=== PATIENT | male | born 1980 | race Caucasian/White ===

== ENCOUNTER → 2016-12-09 | Outpatient (CLI) | payer BC ==
[2016-12-09 17:17] LABS: THYROID STIMULATING HORMONE 5.49 uIu/ml (0.300-4.500)
== END | disposition home or self-care (01) ==
LOC: C.LABBC 15:16
PROVIDERS: ATTEND Family Medicine
DX: Z13.29 Encounter for screening for other suspected endocrine disorder (principal)

== ENCOUNTER → 2016-12-13 | Outpatient (CLI) | payer BC ==
--- NOTE | 2016-12-13 09:46 | DIAGNOSTIC IMAGING REPORT ---
THYROID ULTRASOUND CLINICAL HISTORY: Neck fullness. COMPARISON STUDY: None TECHNIQUE: Sonography of the thyroid gland was performed. FINDINGS: The right thyroid lobe measures 5.2 x 1.9 x 1.5 cm and the left lobe measures 5 x 1.4 x 1.3 cm. Several subcentimeter right lobe nodules are noted. The largest is within the mid to lower pole, 0.6 x 0.5 x 0.4 cm. The gland is homogeneous. IMPRESSION: 1. Top normal size thyroid gland. 2. A few subcentimeter right lobe nodules. While indeterminate, these are likely benign and do not meet criteria for biopsy. Electronically signed by: Ralph Dumont M.D. 12/13/2016 9:45 AM Dictated Date/Time: 12/13/2016 9:43 AM
== END | disposition home or self-care (01) ==
LOC: C.ULTR 08:47
PROVIDERS: ATTEND Family Medicine
DX: R22.1 Localized swelling, mass and lump, neck (principal)

== ENCOUNTER → 2017-01-14 | Outpatient (CLI) | payer BC ==
[2017-01-16 14:34] LABS: MICROSOMAL AB <1 IU/ML (<9)
== END | disposition home or self-care (01) ==
LOC: C.LABBC 12:26
PROVIDERS: ATTEND Family Medicine
DX: E03.9 Hypothyroidism, unspecified (principal)

== ENCOUNTER → 2017-12-10 | Outpatient (CLI) | payer BC | END | disposition home or self-care (01) | LOC: C.LABBC 13:51 | PROVIDERS: ATTEND Physician Assistant Medical | DX: Z00.00 Encounter for general adult medical examination without abnormal findings (principal); J30.9 Allergic rhinitis, unspecified; E03.9 Hypothyroidism, unspecified ==

== ENCOUNTER → 2018-06-04 | Outpatient (CLI) | payer BC | END | disposition home or self-care (01) | LOC: C.LABBC 08:24 | PROVIDERS: ATTEND Physician Assistant Medical | DX: Z00.00 Encounter for general adult medical examination without abnormal findings (principal); J30.9 Allergic rhinitis, unspecified; E03.9 Hypothyroidism, unspecified ==

== ENCOUNTER 2022-01-06 14:11 | Observation (INO) ==
[2022-01-06] MEDS ORDERED: ceFAZolin 2000MG 2,000 MG/15 ML SYR IV ONE (14:59)
--- NOTE | 2022-01-06 15:00 | XRay Report ---
XR ankle RT min 3V routine, XR tibia fibula RT 2V HISTORY: 41 years-old Male fall, ankle pain acute pain of the right lower extremity status post fall COMPARISON: None TECHNIQUE: 2 views of the right tibia and fibula with 2 views of the right ankle FINDINGS: ANKLE: There is an acute intra-articular medial malleolar fracture which demonstrates 8 mm volar displacemen t with mild comminution. A 1.3 cm bone fragment is noted along the anterior margin of the distal tibi a on the lateral view. Acute minimally displaced posterior malleolar fracture. Mild to moderate circu mferential soft tissue swelling of the ankle. No dislocation. Mild spurring of the calcaneus. TIBIA/FIBULA: There is an acute spiral fracture of the mid fibular diaphysis demonstrating 4 mm lateral with 6 mm v olar displacement. No additional acute fracture or dislocation. IMPRESSION: 1. Acute, mildly comminuted and displaced medial malleolar fracture. 2. Acute minimally displaced posterior malleolar fracture. 3. Acute mildly displaced spiral fracture of the mid fibular diaphysis. ACT 112: Negative or not required by law. The above report was generated using voice recognition software. It may contain grammatical, syntax o r spelling errors. Electronically signed by: Ronnie Stevens M.D. 01/06/2022 2:59 PM
--- NOTE | 2022-01-06 16:15 | Emergency Department Note ---
History of Present Illness General Chief complaint: Leg Injury/Pain Stated complaint: LOWER LEG PAIN, BREAK Time Seen by Provider: 01/06/22 14:25 History of Present Illness Maximum Pain Intensity: 3 This 41-year-old male presents today with his , for evaluation of his right ankle. Patient states he was walking in the [employer] with his dog, and slipped on some ice. He fell and had immediate onset of pain in his ankle. He noticed that his foot was turned 90 degrees externally. He did grab onto the foot and twist it back into place. He has not been able to bear weight on the leg. He denies any knee or hip pain. He did not strike his head. No loss of consciousness. He does have a history of previous right ankle fracture that did not require surgery, many years ago. No other complaints at this point. He denies any numbness or tingling. Home Medications Medication Instructions Recorded Confirmed Type levothyroxine 75 mcg tablet 75 mcg PO DAILY #90 tab 01/02/22 01/06/22 Rx Allergies Allergy/AdvReac Type Severity Reaction Status Date / Time No Known Allergies Allergy Verified 01/06/22 15:59 Past Med/Surg History Medical History Allergic rhinitis Hypothyroidism Laryngopharyngeal reflux Surgical History No pertinent past surgical history Family History Grandfather (Maternal) Prostate cancer Grandmother (Paternal) Breast cancer Grandfather (Paternal) Diabetes Father Diabetes Grandmother (Maternal) Myocardial infarction Mother Melanoma in her 30s Denies family history of Ovarian cancer Lung cancer Colorectal cancer Social History Smoking Status: Never smoker Second Hand Exposure: No; Hx Alcohol Use: Yes Alcohol type: beer Hx Substance Use: No Preferred Language: Kinyarwanda Communication Ability: Effective Visual Impairment: No Limitations Hearing Ability: Normal Professor Of Physics Required: No marital status: Current Living Situation: Spouse Current Living Situation Comment: 4 children current occupational status: employed current occupation: Residential Director [employer] Feels Safe at Home: Yes Childhood Exposure to Second-Hand Smoke: Yes caffeine: Yes Dental Care, Regularly: Yes Physical Activity Frequency: Daily Seatbelt Use: always Sunscreen Use: Yes Review of Systems A total of 10 systems reviewed and were otherwise negative Physical Exam Vital Signs Vital Signs - 24 hr 01/06/22 14:27 Temperature 36.7 C Temperature Source Temporal Artery Scan Pulse Rate 61 Respiratory Rate 18 Respiratory Effort / Characteristics Non-Labored Respiratory Depth Normal Respiratory Pattern Regular Blood Pressure 118/73 Blood Pressure Mean 88 Blood Pressure Position Sitting Pulse Oximetry 98 Oxygen Delivery Method Room Air Sepsis Recent Fever Within 48 Hours No Sepsis New/Unexplained Change in Mental Status No Sepsis Action Taken by Nursing No Action Required General: Well-developed, well-nourished, young white male, in no acute distress. Sitting in a bed. Alert and oriented. Skin: Warm and dry with good turgor. No rashes or lesions. No erythema. The patient is not diaphoretic. There are 2 small abrasions present over the ant erior medial malleolus, with 2 vertical incisions that are approximately 3 mm each. Bleeding is controlled. No bone fragments are noted. There is ecchymosis between the 2 lacerations. Musculoskeletal: Patient has no discomfort with palpation over the right knee. No pain with palpation over the fibular head. Palpation of the midshaft tibia and fibula also reveals no discomfort. There is crepitus palpable over the midshaft fibula, though this is nontender. He does have significant discomfort with palpation over the medial malleolus and lateral malleolus. No abnormalities noted with palpation of the Achilles. Normal Tavarez test. No pain with palpation over the midfoot, forefoot, or toes. Motor function of the toes is intact and unremarkable. Motor function the ankle was not attempted due to suspected fracture. Neurologic: Gross sensation is intact across all aspects of the right lower leg and foot by soft touch. Peripheral pulses are 2+. Capillary refill is equal for each of the toes. Course Administered Medications Sodium Chloride (Nss 1000ml) 1,000 mls @ 80 mls/hr IV .[id number] [facility] Stop: 02/05/22 16:59 Last Admin: 01/06/22 17:20 Dose: 80 mls/hr Documented by: [id number] Discontinued Medications Cefazolin Sodium (Ancef 2000mg) 2,000 mg in 15 mls @ 3.75 mls/min IV PREOP ONE Stop: 01/06/22 15:02 Last Admin: 01/06/22 15:15 Dose: 3.75 mls/min Documented by: [id number] Medical Decision Making Differential Diagnosis Closed ankle fracture, open ankle fracture, sprain, Maisonneuve injury, contusion, ligament disruption Home Medications Current Medication List: was personally reviewed by me Laboratory Data Lab Results 01/06/22 Range/Units 15:15 SARS-CoV-2, RNA, NAAT NEGATIVE (NEGATIVE) Imaging Data My Impression: Radiographic imaging obtained today of the tibia and fibula, as well as the ankle, were reviewed by me and read by radiology. Patient has a displaced medial malleolus fracture, midshaft fibular fracture, and a posterior malleolus fracture. Medial malleolus fracture fragment correlates with the location of his puncture wounds. Radiologist's Impression: Ankle X-Ray 01/06/22 14:29 XR ankle RT min 3V routine, XR tibia fibula RT 2V HISTORY: 41 years-old Male fall, ankle pain acute pain of the right lower extremity status post fall COMPARISON: None TECHNIQUE: 2 views of the right tibia and fibula with 2 views of the right ankle FINDINGS: ANKLE: There is an acute intra-articular medial malleolar fracture which demonstrates 8 mm volar displacement with mild comminution. A 1.3 cm bone fragment is noted along the anterior margin of the distal tibia on the lateral view. Acute minimally displaced posterior malleolar fracture. Mild to moderate circumferential soft tissue swelling of the ankle. No dislocation. Mild spurring of the calcaneus. TIBIA/FIBULA: There is an acute spiral fracture of the mid fibular diaphysis demonstrating 4 mm lateral with 6 mm volar displacement. No additional acute fracture or dislocation. IMPRESSION: 1. Acute, mildly comminuted and displaced medial malleolar fracture. 2. Acute minimally displaced posterior malleolar fracture. 3. Acute mildly displaced spiral fracture of the mid fibular diaphysis. ACT 112: Negative or not required by law. The above report was generated using voice recognition software. It may contain grammatical, syntax or spelling errors. Electronically signed by: Ronnie Stevens M.D. 01/06/2022 2:59 PM Tibia/Fibula X-Ray 01/06/22 14:29 XR ankle RT min 3V routine, XR tibia fibula RT 2V HISTORY: 41 years-old Male fall, ankle pain acute pain of the right lower extremity status post fall COMPARISON: None TECHNIQUE: 2 views of the right tibia and fibula with 2 views of the right ankle FINDINGS: ANKLE: There is an acute intra-articular medial malleolar fracture which demonstrates 8 mm volar displacement with mild comminution. A 1.3 cm bone fragment is noted along the anterior margin of the distal tibia on the lateral view. Acute minimally displaced posterior malleolar fracture. Mild to moderate circumferential soft tissue swelling of the ankle. No dislocation. Mild spurring of the calcaneus. TIBIA/FIBULA: There is an acute spiral fracture of the mid fibular diaphysis demonstrating 4 mm lateral with 6 mm volar displacement. No additional acute fracture or dislocation. IMPRESSION: 1. Acute, mildly comminuted and displaced medial malleolar fracture. 2. Acute minimally displaced posterior malleolar fracture. 3. Acute mildly displaced spiral fracture of the mid fibular diaphysis. ACT 112: Negative or not required by law. The above report was generated using voice recognition software. It may contain grammatical, syntax or spelling errors. Electronically signed by: Ronnie Stevens M.D. 01/06/2022 2:59 PM Blood Pressure Blood Pressure Findings: Normal blood pressure MDM Narrative Patient was evaluated in room D5. Conservative care measures were discussed. IV was established. Radiographic imaging of the ankle and tibia/fibula was obtained. Patient did not require any IV pain medication. His films are positive for medial malleolus fracture, posterior malleolus fracture, and a midshaft fibular fracture. Mechanism of injury suggests interosseous disruption. Location of his skin wounds correlate with the tibia fracture. Risk for open fracture was discussed with him. Because of this, consultation was obtained from Dr. Zuniga from [facility] orthopedics. He will take the patient to the OR this evening for ORIF. Please see his dictation for final management. Patient did eat pancakes this morning around 9:30 AM and had a granola bar approximately an hour and a half ago. This was relayed to the surgeon. Patient was placed in a Ortho-Glass stirrup splint by me with an auto tech, to assist with support/stability. Neurovascular status was checked before and after splint placement. Patient remained stable while in the ED. Impression & Plan Bimalleolar fracture of right ankle NPO. He will be taken to the OR this evening for ORIF. Ancef 2 g IV was administered in the ED. Nadia: I saw and examined patient. Agree with above note. To OR this evening for ORIF. Admit to hospital overnight post-op. Discharge Plan Visit Data Patient Disposition: Admitted As Inpatient Forms Stand Alone Forms: [facility] Prescriptions Prescriptions: No Action levothyroxine 75 mcg tablet 75 mcg PO DAILY Qty: 90 RF: 0 Referrals Referrals: Sunni Matute MD [Primary Care Provider] - Discharge Problem: Bimalleolar fracture of right ankle Qualifiers: Encounter type: initial encounter Fracture type: open Open fracture type: open type I or II Qualified Code(s): S82.841B - Displaced bimalleolar fracture of right lower leg, initial encounter for open fracture type I or II
[2022-01-06] MEDS ORDERED: SODIUM CHLORIDE 0.9% 1000ML 1,000 ML IV SCH (17:00)
[2022-01-06] MEDS ORDERED: ePHEDrine sulfate 50 MG/ML AMP IV PRN (19:29)
[2022-01-06] MEDS ORDERED: LABETALOL HCL IV 5 MG/ML 20ML IV PRN (19:29)
[2022-01-06] MEDS ORDERED: PHENYLEPHRINE 100MCG/ML 5ML SYR IV PRN (19:29)
[2022-01-06] MEDS ORDERED: MEPERIDINE HCL 25 MG/ML CARP/VIAL IV PRN (19:29)
[2022-01-06] MEDS ORDERED: HYDROmorphone INJ 1 MG/ML SYRINGE IV PRN (19:29)
[2022-01-06] MEDS ORDERED: ATROPINE SULFATE 0.1 MG/ML 10ML SYR IV PRN (19:29)
[2022-01-06] MEDS ORDERED: ONDANSETRON INJ 2 MG/ML 2 ML VIAL IV PRN (19:29)
--- NOTE | 2022-01-06 19:30 | Anesthesiology Consultation ---
Date of Service January 06, 2022 Assessment & Plan (1) Encounter for pre-operative examination: Chart Review Chart Review: Acceptable Risk for Surgery and Patient NOT seen in Pre Admission Testing Consults Requested none History Surgery Operation Date: 01/06/22 17:15 Proposed Procedures p ORIF right Tibial Plateau Fracture(Right) - Abdulaziz Zuniga MD Height/Weight Height: 6 ft 2 in Weight: 99.3 kg Allergies Allergy/AdvReac Type Severity Reaction Status Date / Time No Known Allergies Allergy Verified 01/06/22 15:59 Medications Home Medications Medication Instructions Recorded Confirmed Last Taken levothyroxine 75 mcg tablet 75 mcg PO DAILY #90 tab 01/02/22 01/06/22 01/06/22 Active Medications Generic Name Dose Route Start Last Admin Trade Name Freq PRN Reason Stop Dose Admin Sodium Chloride 1,000 mls @ 80 mls/hr 01/06/22 17:00 01/06/22 17:20 Nss 1000ml IV 02/05/22 16:59 80 mls/hr .[id number] ROBY Administration NPO Date Last Intake of Fluids: 01/06/22 Time Last Intake of Fluids: 13:00 Last Intake of Fluids Comment: water Date Last Intake of Solids: 01/06/22 Time Last Intake of Solids: 12:00 Last Intake of Solids Comment: lesly nolan Past Medical History Medical History Allergic rhinitis Hypothyroidism Laryngopharyngeal reflux Past Family History Family History Grandfather (Maternal) Prostate cancer Grandmother (Paternal) Breast cancer Grandfather (Paternal) Diabetes Father Diabetes Grandmother (Maternal) Myocardial infarction Mother Melanoma in her 30s Denies family history of Ovarian cancer Lung cancer Colorectal cancer Past Surgical History Surgical History No pertinent past surgical history Social History Smoking Status: Never smoker Hx Alcohol Use: Yes Alcohol type: beer Hx Substance Use: No Physical Exam Vital Signs Last Vital Signs Temp 36.7 C 01/06/22 14:27 Pulse 61 01/06/22 14:27 Resp 18 01/06/22 14:27 BP 118/73 01/06/22 14:27 Pulse Ox 98 01/06/22 14:27
[2022-01-06] MEDS ORDERED: MIDAZOLAM HCL 1 MG/ML 2ML VIAL ONE (19:45)
[2022-01-06] MEDS ORDERED: fentaNYL citrate 100 MCG/2 ML VIAL ONE ×2 (19:46→22:06)
[2022-01-06] MEDS ORDERED: PROPOFOL IV EMULSION 10 MG/ML 20 ML VIAL IV ONE (19:52)
[2022-01-06] MEDS ORDERED: SUCCINYLCHOLINE CHLORIDE 20 MG/ML 10 ML VIAL IV ONE (19:54)
[2022-01-06] MEDS ORDERED: DEXAMETHASONE SOD INJ 4 MG/ML VIAL ONE (19:54)
[2022-01-06] MEDS ORDERED: LIDOCAINE 2% 2 ML VIAL/AMP(20MG/ML) INFIL ONE (19:54)
[2022-01-06] MEDS ORDERED: ONDANSETRON INJ 2 MG/ML 2 ML VIAL ONE (19:54)
[2022-01-06] MEDS ORDERED: EPINEPHrine INJ 1 MG/ML AMP ONE (20:15)
[2022-01-06] MEDS ORDERED: BUPIVACAINE 0.5 % 5 MG/1 ML MPF 30ML VIAL ONE (20:15)
[2022-01-06] MEDS ORDERED: ceFAZolin 330 MG/ML 1 GM VIAL ONE (20:42)
--- NOTE | 2022-01-06 21:01 | History and Physical Report ---
DATE OF SERVICE: 01/06/2022 CHIEF COMPLAINT: Right ankle pain. HISTORY OF PRESENT ILLNESS: The patient is a 41-year-old male, who was running in the [place] today around 1:15 p.m. when he slipped on the ice. His ankle externally rotated as he fell and was pointed 90 degrees externally rotated when he landed on the ground. Immediate onset of pain and deformity. He self- reduced his ankle. He was able to use a cell phone to call his neighbor and his to help him get out of the [place]. He was brought to the Emergency Room. X-rays were obtained demonstrating a rotational ankle fracture, Maisonneuve pattern with medial malleolus and posterior malleolus fractures. Orthopedics was consulted for management. The patient reports he has had 2 previous fractures to his ankle. He believes it was of this one. One was in high school, second one was in college playing basketball. Fully recovered from these injuries, did not have any ankle pain before this most recent injury. Denies any numbness or tingling. PAST MEDICAL HISTORY: Hypothyroidism. PAST SURGICAL HISTORY: None. FAMILY HISTORY: Reviewed in the chart. SOCIAL HISTORY: Rare alcohol. Nonsmoker. 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 MEDICATIONS: Synthroid. ALLERGIES: No known drug allergies. PHYSICAL EXAMINATION: GENERAL: Healthy appearing male in no acute distress. EXTREMITIES: Right ankle exam reveals the patient to be lying on his side as this is more comfortable when gravity internally rotates his ankle. He has a skin abrasion over the medial aspect of his distal tibia with 2 small cuts. This does not appear to be a definite inside-out injury. However, it is in the region of his medial malleolus fracture. The patient has tenderness to palpation over the medial malleolus, lateral malleolus and proximal fibula. Distally, neurovascularly intact. RESULTS REVIEWED: X-rays that were done today of the ankle and tib-fib are reviewed. These demonstrate an oblique fracture of the midshaft of the fibula, a medial malleolus fracture, which is slightly displaced, and a minimally displaced posterior malleolus fracture. These findings are consistent with a rotational ankle fracture, Maisonneuve variant. IMPRESSION: A 41-year-old male with right Maisonneuve ankle fracture involving the medial malleolus, posterior malleolus, and proximal fibula. PLAN: I discussed with the patient that this is an unstable ankle injury. Surgery was recommended to reduce and fix the fractures. I reviewed the risks and benefits of surgery, alternatives, and expected outcomes. This include that we would plan on needing to do a hardware removal 10-12 weeks after the initial surgery. After reviewing all the risks and benefits of surgery, he elected to proceed. All questions were answered, informed consent was signed. He will go into a splint in the Emergency Room. We will plan on proceeding to the operating room once he is 8 hours n.p.o. He did eat around noon today, so that will be around 8:00 p.m. this evening. Plan on keeping him overnight for IV antibiotics and pain control. Job ID: [id number] [facility]
[2022-01-06] MEDS ORDERED: ePHEDrine sulfate 50 MG/ML SYR ONE (21:29)
[2022-01-06] MEDS ORDERED: KETOROLAC 30 MG/ML VIAL ONE (22:47)
--- NOTE | 2022-01-06 23:35 | Operative Report ---
Post Operative Report Pre & Post Diagnosis Operation Date: 01/06/22 17:15 Pre-Op Diagnosis: Right Ankle Fracture Post-Op Diagnosis: Right Ankle Fracture I identified the patient and participated in the time-out.: Yes Procedure Operation Date: 01/06/22 17:15 Actual Procedures p ORIF right Tibial Plateau Fracture(Right) - Abdulaziz Zuniga MD Surgeon Abdulaziz Zuniga Caster Operator Kai Miramontes MD Estimated Blood Loss 25 Findings Consistent with Post-Op Diagnosis Consistent with post op Specimens no specimens Description of Procedure I participated in prepping dressing and assisted Dr. Zuniga during the procedure. Please see Dr. Zuniga note I attest to the content of the Intraoperative Record and any orders documented therein. Any exceptions are noted below.
[2022-01-06] MEDS: fentaNYL citrate 100 MCG/2 ML VIAL IV PRN ×2 (23:46→23:51)
--- NOTE | 2022-01-06 23:49 | Operative Report ---
Post Operative Report Pre & Post Diagnosis Operation Date: 01/06/22 17:15 Pre-Op Diagnosis: Right Ankle Fracture Dislocation, trimalleolar Post-Op Diagnosis: Right Ankle Fracture Dislocation, trimalleolar I identified the patient and participated in the time-out.: Yes Procedure Operation Date: 01/06/22 17:15 Actual Procedures p ORIF Right Ankle Fracture Dislocation, trimalleolar (Right) - Abdulaziz Zuniga MD Surgeon Abdulaziz Zuniga MD Evaluation Specialist Kai Miramontes MD Estimated Blood Loss 25 Findings Consistent with Post-Op Diagnosis Specimens None Anesthesia Type General Complications none Indications 41-year-old male, slipped on the ice [place]. Sustained a rotational ankle fracture dislocation, trimalleolar involving the medial malleolus, posterior malleolus and a high fibular fracture Maisonneuve variant. This is an unstable pattern injury. Surgery is recommended to reduce and fix the fracture to give him the best possible long-term outcome for his ankle. After reviewing all the risks and benefits of surgery he elected to proceed. All questions were answered. Informed consent was signed. Description of Procedure Patient was identified in the preoperative holding area where his surgical site was marked. He was brought back to main operating room was placed in the operating table and general anesthesia administered. A bump was placed underneath the operative hip. All bony prominences were padded. Perioperative antibiotics were administered. He was prepped and draped in the usual sterile fashion. Prior to incision a multidisciplinary timeout was called. All in the room in agreement. We began by exsanguinating the limb with an Esmarch bandage. Tourniquet was inflated 2 and 50 mmHg. We started with the medial malleolus. An 8 cm long curved incision was made starting about 3 cm above the level of the fracture, and extending to just past the tip of the medial malleolus. We dissected down to subcutaneous tissues. Saphenous vein was identified and was retracted anteriorly. Small crossing branches were cauterized. Fracture was immediately evident. There was a large flap of periosteum with a small piece of cortical bone attached that it ripped from the posterior aspect of the ankle and was sitting anteriorly. We could visualize into the ankle joint clearly. There was some hemorrhage within the deep deltoid ligament and partial tearing but no com plete tearing. The fracture edges were cleaned with a fresh 15 blade. Small amount of synovitis in the anterior medial gutter was excised so it would not block the fracture reduction. Fracture was then reduced anatomically. This was secured with 2 K wires. We then measured and drilled with a cannulated drill over the K wires. Partially-threaded 4-0 cancellous screws were then placed. This compressed the fracture nicely. Excellent fixation was obtained. Prior to reducing and fixing his fracture the ankle was grossly unstable. Having secured the medial malleolus there was significantly more stability. Next we turned our attention to the fibula. A 6 cm long incision was made along the posterior border of the fibula starting at the level of syndesmosis and moving proximally. We dissected down through subcutaneous tissues. We did not encounter the superficial peroneal nerve in our dissection. We then incised the periosteum on the lateral border of the fibula and work posteriorly to retract the peroneals posteriorly and expose the posterior lateral aspect of the fibula. A 4 hole one third tubular plate was then placed along the posterior lateral aspect of the fibula and secured with BB tacks. Small modifications were made to the position of the plate. Once were happy with the plate position we then placed a 3.5 mm cortical screw in the most proximal hole in bicortical fashion In the most distal hole we placed a 3.5 mm cortical screw in unicortical fashion so the tip would not enter the syndesmosis. This gave us good compression of the plate on the bone. Next pointed tenaculum clamp was placed with 1 janet in the most distal screw head on the 4-hole plate laterally and the other janet through the medial incision on the tibia. This was tightened down under fluoroscopic guidance giving us excellent reduction of the syndesmosis. We also used the tenaculum clamp to translate the fibula slightly distally in order to regain full length of the fibula. The K wires for the tight ropes in the middle 2 holes were then drilled through the fibula and tibia under fluoroscopic guidance. The exit point was identified through a medial incision which had to be extended proximally about 1 cm. This allowed us to completely protect the saphenous vein and nerve. Once the position of her wires was confirmed we then overdrilled with a cannulated drill. 2 tight ropes were placed. These were tightened down. Excellent fixation was obtained. At this point we visualized the posterior malleolus fracture. Starting point for a front to back screw was identified on the AP and lateral fluoroscopic views. A small 1 cm stab incision was made. We bluntly dissected through the subcutaneous tissues down onto the bone. The K wire for a 4-0 cannulated screw was then drilled from front to back under fluoroscopic guidance with the soft tissue sleeve in place to protect the soft tissues. We then overdrilled with a 2.6 mm cannulated drill. A partially-threaded cancellous screw was then placed from front to back again protecting the soft tissues with 2 Ragnell retractors. Excellent fixation was obtained. At this point we checked her stability of her fracture and we were very happy. Hardware was all in good position. Screw lengths were appropriate. The wounds were then irrigated out with copious amounts of normal saline. We then began to close. The large periosteal flap on the medial wound was reduced to as close to its anatomic position as possible. This was then sutured to the surrounding periosteum with 3-0 Vicryl sutures. The deep dermal layer was closed with 3-0 Vicryl sutures in inverted fashion. 3-0 nylon was placed in the skin in horizontal mattress fashion. 30 cc of half percent Marcaine was injected subcutaneous tissues spread out through all of his wounds for postoperative pain control. Xeroform 4 x 4's ABDs and cast padding were placed, followed by a posterior and U plaster slab splint with the ankle held in neutral. Patient was then awoke from anesthesia and transferred recovery room in stable condition. Postoperative course: Patient be admitted to the hospital overnight for pain control and monitoring and IV postoperative antibiotics. He will be discharged tomorrow once his 24 h of antibiotics is up. Plan for nonweightbearing for a total of 6 weeks. 2 weeks from now he can go into a removable walking boot and begin range of motion exercises. Aspirin for DVT prophylaxis. I attest to the content of the Intraoperative Record and any orders documented therein. Any exceptions are noted below.
--- NOTE | 2022-01-06 23:52 | Anesthesiology Progress Note ---
Date of Service January 06, 2022 Anesthesia Post Procedure Vital Signs Vital Signs: Temp Pulse Pulse Resp BP BP Pulse Ox 01/06/22 23:35 76 14 140/83 100 01/06/22 23:29 36.4 C L 82 16 142/84 H 98 01/06/22 14:27 36.7 C 61 18 118/73 98 Pain Intensity Right Leg: Pain Intensity: 2 Right Ankle: Pain Intensity: 2 Transfer of Care Handoff Completed per policy Notes Mental Status: alert / awake / arousable Patient Amnestic to Procedure: Yes Nausea / Vomiting: adequately controlled Pain: adequately controlled Airway Patency, RR, SpO2: stable & adequate BP & HR: stable & adequate Hydration State: stable & adequate Anesthetic Complications: no major complications apparent and Pt Satisfied with anesthetic care
[2022-01-07] MEDS ORDERED: HYDROmorphone INJ 0.5 MG/0.5 ML SYR IV PRN (00:57)
[2022-01-07] MEDS ORDERED: ACETAMINOPHEN 325 MG TAB PO PRN (00:57)
[2022-01-07] MEDS ORDERED: ONDANSETRON INJ 2 MG/ML 2 ML VIAL IV PRN (00:57)
[2022-01-07] MEDS: SODIUM CHLORIDE 0.9% 1000ML 1,000 ML IV SCH ×2 (01:15→12:14)
[2022-01-07] MEDS: oxyCODONE/ACETAMINOPHEN 5mg/325mg TAB PO PRN ×3 (03:07→16:02)
[2022-01-07] MEDS: ceFAZolin 2000MG 2,000 MG/15 ML SYR IV SCH ×2 (04:52→12:50)
[2022-01-07] MEDS ORDERED: LEVOTHYROXINE SODIUM 75 MCG TABLET PO SCH (06:30)
--- NOTE | 2022-01-07 08:29 | XRay Report ---
XR ankle RT min 3V routine HISTORY: 41 years-old Male s/p orif acute fracture of the right ankle COMPARISON: Right ankle radiographs 01/06/2022 TECHNIQUE: 3 views of the right ankle FINDINGS: Status post ORIF of the acute right ankle fractures. Plate and screw fusion of the distal fibula with 2 syndesmotic anchors. There are 2 intact elongated cannulated screws fixating the acute medial mall eolar fracture. The posterior malleolar fracture is fixated by an elongated cannulated screw extendin g anterior to posterior. There is improved alignment. Expected postoperative soft tissue swelling. Ov erlying casting material. Displaced mid fibular fracture redemonstrated. IMPRESSION: 1. Improved alignment of the acute right ankle fracture status post ORIF. 2. Acute and displaced mid fibular diaphyseal fracture redemonstrated. ACT 112: Negative or not required by law. The above report was generated using voice recognition software. It may contain grammatical, syntax o r spelling errors. Electronically signed by: Ronnie Stevens M.D. 01/07/2022 8:27 AM
[2022-01-07] MEDS ORDERED: ASPIRIN 81 MG ECTAB PO SCH (09:00)
--- NOTE | 2022-01-07 09:23 | Fluoroscopy Report ---
INTRAOPERATIVE RADIOGRAPHS CLINICAL HISTORY: Open reduction and internal fixation of the right ankle. Fluoroscopy time: 112 seconds. FINDINGS: 5 spot fluoroscopic views of the right ankle are correlated with radiographs dated 2. 2 cortical lag screws have been placed transfixing the medial malleolus. A cortical lag screw is a lso seen in the distal tibia in the AP plane transfixing the posterior tibial plafond. There has been buttress plate fixation of a distal fibular fracture. Small plates are also seen along the medial as pect of the distal tibial metadiaphysis. The orthopedic hardware appears intact. A proximal fibular s haft fracture is noted. IMPRESSION: Intraoperative images from open reduction and internal fixation of right ankle fractures as above. Electronically signed by: Bernardo Gupta M.D. 01/07/2022 9:22 AM
--- NOTE | 2022-01-07 14:33 | Orthopedic Progress Note ---
Date of Service January 07, 2022 Assessment & Plan (1) Bimalleolar fracture of right ankle: Plan: PT/OT NWB on Right lower extremity Crutches/knee scooter DVT prophy with Aspirin 81 mg and kervin stocking Keep splint in place Ice with EZ wrap Pain control with PO medication Follow up at [facility] as scheduled (Next Friday with Dr. Zuniga) With questions contact our clinic at [phone] Admission and Anticipated Discharge Date Admission Date: January 06, 2022 Subjective This 41 yo male is day s/p ORIF of a right ankle fracture that he sustained yesterday afternoon. Patient states that his pain is well controlled with PO pain medication. He states that his toes are still a little numb. He denies CP, SOB, Nausea, vomiting, fever, chills, sweats or lethargy. Review of Systems Review of Systems: All systems reviewed & are unremarkable except as noted in Subjective Physical Exam Physical Exam: Right lower extremity: splint is clean, dry and intact. Patient is able to perform SLRT. Knee ROM is full. Patient is able to detect light sensation to touch over pad of Right foot. NV intact. Results & Data ([facility]) Vital Signs (Past 12 Hours) Vital Signs Temp Pulse Pulse Resp BP Pulse Ox 01/07/22 07:12 36.8 C 53 L 14 112/65 96 01/07/22 03:54 36.9 C 60 14 125/60 97 01/07/22 02:58 36.8 C 61 15 120/66 96 Diagnostic Findings Laboratory Results SARS-CoV-2, RNA, NAAT NEGATIVE (NEGATIVE) 01/06/22 15:15 Impressions Tibia/Fibula X-Ray 01/06/22 14:29 XR ankle RT min 3V routine, XR tibia fibula RT 2V HISTORY: 41 years-old Male fall, ankle pain acute pain of the right lower extremity status post fall COMPARISON: None TECHNIQUE: 2 views of the right tibia and fibula with 2 views of the right ankle FINDINGS: ANKLE: There is an acute intra-articular medial malleolar fracture which demonstrates 8 mm volar displacement with mild comminution. A 1.3 cm bone fragment is noted along the anterior margin of the distal tibia on the lateral view. Acute minimally displaced posterior malleolar fracture. Mild to moderate circumferential soft tissue swelling of the ankle. No dislocation. Mild spurring of the calcaneus. TIBIA/FIBULA: There is an acute spiral fracture of the mid fibular diaphysis demonstrating 4 mm lateral with 6 mm volar displacement. No additional acute fracture or dislocation. IMPRESSION: 1. Acute, mildly comminuted and displaced medial malleolar fracture. 2. Acute minimally displaced posterior malleolar fracture. 3. Acute mildly displaced spiral fracture of the mid fibular diaphysis. ACT 112: Negative or not required by law. The above report was generated using voice recognition software. It may contain grammatical, syntax or spelling errors. Electronically signed by: Ronnie Stevens M.D. 01/06/2022 2:59 PM Ankle X-Ray 01/07/22 00:12 XR ankle RT min 3V routine HISTORY: 41 years-old Male s/p orif acute fracture of the right ankle COMPARISON: Right ankle radiographs 01/06/2022 TECHNIQUE: 3 views of the right ankle FINDINGS: Status post ORIF of the acute right ankle fractures. Plate and screw fusion of the distal fibula with 2 syndesmotic anchors. There are 2 intact elongated cannulated screws fixating the acute medial malleolar fracture. The posterior malleolar fracture is fixated by an elongated cannulated screw extending anterior to posterior. There is improved alignment. Expected postoperative soft tissue swelling. Overlying casting material. Displaced mid fibular fracture redemonstrated. IMPRESSION: 1. Improved alignment of the acute right ankle fracture status post ORIF. 2. Acute and displaced mid fibular diaphyseal fracture redemonstrated. ACT 112: Negative or not required by law. The above report was generated using voice recognition software. It may contain grammatical, syntax or spelling errors. Electronically signed by: Ronnie Stevens M.D. 01/07/2022 8:27 AM (1) Bimalleolar fracture of right ankle Encounter type: initial encounter Fracture type: open Open fracture type: open type I or II Qualified Code(s): S82.841B - Displaced bimalleolar fracture of right lower leg, initial encounter for open fracture type I or II
--- NOTE | 2022-01-07 14:43 | Discharge Summary ---
Date of Service January 07, 2022 Admission HPI Per Admitting Provider The patient is a 41-year-old male, who was running in the Mailbox today around 1:15 p.m. when he slipped on the ice. His ankle externally rotated as he fell and was pointed 90 degrees externally rotated when he landed on the ground. Immediate onset of pain and deformity. He self-reduced his ankle. He was able to use a cell phone to call his neighbor and his to help him get out of the malcolm. He was brought to the Emergency Room. X-rays were obtained demonstrating a rotational ankle fracture, Maisonneuve pattern with medial malleolus and posterior malleolus fractures. Orthopedics was consulted for management. The patient reports he has had 2 previous fractures to his ankle. He believes it was of this one. One was in high school, second one was in college playing basketball. Fully recovered from these injuries, did not have any ankle pain before this most recent injury. Denies any numbness or tingling. Admission Exam Per Admitting Provider PHYSICAL EXAMINATION: GENERAL: Healthy appearing male in no acute distress. EXTREMITIES: Right ankle exam reveals the patient to be lying on his side as this is more comfortable when gravity internally rotates his ankle. He has a skin abrasion over the medial aspect of his distal tibia with 2 small cuts. This does not appear to be a definite inside-out injury. However, it is in the region of his medial malleolus fracture. The patient has tenderness to palpation over the medial malleolus, lateral malleolus and proximal fibula. Distally, neurovascularly intact. Principal Diagnosis right Maisonneuve ankle fracture involving the medial malleolus, posterior malleolus, and proximal fibula. Discharge Exam Right lower extremity: splint is clean, dry and intact. Patient is able to perform SLRT. Knee ROM is full. Patient is able to detect light sensation to touch over pad of Right foot. NV intact. Discharge Data Allergies Allergy/AdvReac Type Severity Reaction Status Date / Time No Known Allergies Allergy Verified 01/06/22 15:59 Consultations 01/06/22 16:01 ED Decision to Admit Stat Procedures Performed Operation Date: 01/06/22 17:15 Actual Procedures p ORIF right Tibial Plateau Fracture(Right) - Abdulaziz Zuniga MD Ordered Studies 01/06/22 16:28 FL ankle RT 2V Routine Hospital Course (1) Bimalleolar fracture of right ankle: Patient had uneventful overnight stay following ORIF of Rt ankle fracture. He is ready to be discharged. We will have him do PT/OT prior to discharge. He will follow up with Dr. Zuniga in our clinic next Friday. PT/OT NWB on Right lower extremity Crutches/knee scooter DVT prophy with Aspirin 81 mg and julien stocking Keep splint in place Ice with EZ wrap Pain control with PO medication Follow up at [facility] as scheduled (Next Friday with Dr. Zuniga) With questions contact our clinic at [phone] Total Time Total Time Spent Total Time Spent (In Minutes): 15 mins Discharge Plan Discharge Items Patient Disposition: Home - Self-Care Reason For Visit: S/P ORIF Discharge Diagnosis: S/p Right ankle fracture ORIF Activity: As commented below Lifting: None Bathing: Keep incision dry Bathing Comment: May Shower tomorrow Sexual Activity: Wait until after follow-up appointment Exercise/Sports: Wait until after follow-up appointment Driving/Machine Use: No driving until cleared by educational technology specialist Weightbearing: Right non-weightbearing Weightbearing Comment: with splint in place with Crutch or knee scooter assistance Non-emergency contact: Surgeon Call non-emergency contact if: you have any medication questions, your pain is not controlled, your temperature is above 101.5, your wound has increased drainage and your wound pain has increased Follow-up/Referrals: Sunni Matute MD [Primary Care Provider] - Abdulaziz Zuniga MD [Physician] - 01/18/22 11:15 am Diet: Regular Addtl Attending Provider Instructions: Post-operative Instructions Dear Patient and Family/Friends, Before you are discharged from the hospital, it is important to know what to expect when you get home after surgery. To that end, we have created this sheet of discharge instructions which covers many commonly asked questions. Make sure you go through this sheet in its entirety with your nurse before you are discharged. Please note that we will go over the specifics of your surgery and recovery when you return for your first post-operative visit. Sincerely, Dr. Zuniga Medications 1. Oxycodone 5 mg: take 1-2 tabs every 4-6 hours as needed for pain. A prescription for 24 tabs will be sent to your pharmacy. 2. Aspirin 81 mg: take 1 tab twice daily for the first 30 days post operatively for blood clot prevention. Please purchase. 3. Extra Strength Tylenol 500 mg: take 2 tabs every 6-8 hours as needed for pain control. Please purchase. Pain Expect to be in a fair amount of pain after surgery. Remember, our goal is not to eliminate your pain, but to make it tolerable. It is a good idea to stay ahead of your pain by taking the medications you were prescribed once you get home. Typically, the pain starts improving 3-7 days after surgery. You should start weaning off the narcotic pain medication (oxycodone, hydrocodone, hydromorphone, morphine) as soon as your pain improves. Please call our office if your pain is not adequately controlled. Ice Ice your operative site at least 5 times a day for 15-30 minutes at a time. Make sure you have a thin cloth between the ice or cooling unit and your skin to prevent valdez bite. This is especially important if you received a nerve block. Continue icing your operative site for the first 5-7 days after surgery, then as needed. Diet/Nausea/Vomiting Start by drinking clear liquids and eating crackers. If you can tolerate this, then you may resume your normal diet. If you feel nauseated or vomit, take Zo bernie/ondansetron (if prescribed). Please call our office if you have intractable nausea or vomiting, or, if after hours, you may go to the Emergency Room for help. Constipation Constipation is a common side effect of narcotic pain medication. If you have not had a bowel movement within 2 days after surgery, we recommend purchasing an over the counter laxative such as Milk of Magnesia, Dulcolax, or Miralax from a local pharmacy, and taking it as instructed. Call our clinic if any questions. Slings and Braces If you were placed in a sling or brace, it must be worn at all times, including sleep. You may remove your sling or brace for physical therapy, home exercises, and showering. The length of time you will be in your brace and range of motion restrictions depends on what surgery you had; these details will be reviewed at your first post-operative appointment. Nerve block The anesthesia team sometimes places a nerve block to help with post-operative pain control. This results in significant numbness and inability to move the extremity. The nerve block usually wears off in 8-12 hours, but sometimes can last up to 24 hours. Please call our office if you are still unable to move your extremity after 24 hours, unless you received a pain pump to take home. Nerve blocks typically wear off quickly, so start taking pain medication as soon as you start feeling soreness near your surgical site. Weight bearing and Range of Motion. Do not bear any weight through your operative extremity immediately after surgery. If you had upper extremity surgery, do not lift anything with that arm. If you are in a knee brace, keep it locked in place until your follow-up. We will discuss your weight bearing, range of motion, and lifting restrictions in detail at your first post-operative appointment. Continuous Passive Motion (CPM) Machine If you were prescribed a CPM machine, it will start after your first post- operative appointment, at which time we will give you instructions on the range of motion settings and duration of treatment Physical therapy You will be given a prescription for physical therapy or occupational therapy at your first post-operative appointment. Typically, patients start therapy within 1 week of surgery Wound care and showering We will inspect your wound at your first post-operative visit, and may do a dressing change at that time. Most patients will be in a water-proof dressing that is removed 14 days after surgery. It is normal to see some dried blood on the dressing. Do not remove your dressing, paper strips or sutures yourself unless you are given permission. Showering is allowed the day after surgery. Do not scrub or remove any dressings. The wound should not be submerged underwater (i.e. in a bathtub or pool) until 4 weeks after surgery JULIEN stockings If you were given white stockings, these are to be worn at all times except to shower (on both legs) for the first 2 weeks after surgery. Driving You may not drive while taking narcotic pain medication or while in a cast, splint, sling or brace. You, the patient, need to make the final determination about when you are safe to drive, however, the earliest you may consider driving after surgery is below: Hand/Wrist/Elbow Surgery: 3 days Shoulder Surgery: 2 weeks Hip,/Knee/Ankle Surgery: 4 weeks Fracture repair: 6 weeks Return to Work Your return to work depends on what surgery was done and what type of work you do. Please bring any paperwork your employer needs completed to your first post-operative visit. Also, bring a description of your job duties, as this helps us to understand what risks you may face at work. Travel Avoid long distance travel (greater than 1 hour) in airplanes and cars for the first 6 weeks after surgery. If you must travel, you need to have a Doppler ultrasound done before you travel to rule out a blood clot in your legs. Follow-up You should have a follow-up appointment already scheduled 1-2 days after surgery. If not, please contact our office to make this appointment before you leave the hospital. When to call the office It is normal to have swelling and bruising in the limb that was operated on. This will improve with time. It is also normal to have fevers for the first 2 days after surgery. Reasons you should call your doctor include: Uncontrolled pain; Nausea, vomiting, or constipation that does not improve with medication; Fevers over 101.5, chills, sweats; Drainage or bleeding from the wound; Foul odor; Spreading areas of redness; Any other concerns Addtl Stave Bolt Equalizer Provider Instructions: Orthopedics Discharge Instructions: Non-weight bearing for 6 weeks Use crutches/walker to assist in ambulation DVT prophylaxis: Aspirin 81mg twice a day for 6 weeks Follow up with [facility] in 2 weeks in the office Leave splint in tact for 2 weeks - avoid getting it wet Pending Studies at Discharge: No Stand-Alone Forms: [facility], Smoking Cessation Medications and DC Order Prescriptions: New oxycodone 5 mg tablet 5 mg PO Q4H Qty: 24 RF: 0 Continued levothyroxine 75 mcg tablet 75 mcg PO DAILY Qty: 90 RF: 0 Discharge Orders: Discharge Order (Routine); Ordered 01/07/22 Ordered By: Flakito Wagner Admission Data Admit Date/Time: 01/06/22 23:35 Attending Provider: Abdulaziz Zuniga Admit Provider: Abdulaziz Zuniga Primary Care Provider: Sunni Matute Other Providers: Abdulaziz Zuniga
== END 2022-01-07 16:36 | disposition home or self-care (01) ==
LOC: ED 14:11 → OR 20:00 → 3N 20:00